=== PATIENT | female | born 1940 | race Caucasian/White ===

== ENCOUNTER 2016-04-16 14:51 | Emergency (ER) | payer MEDICAID, OTHER ==
[~2016-04-16] VITALS: Ht 152.4 cm; Wt 74.0 kg
[~2016-04-16 14:51] MED LIST: BUSP10 PO; METO25 PO; PROZ40CA PO; VALI5TAB PO
[2016-04-16 14:56] VITALS: BP 137/90; PULSE 97; RESP 18; TEMP 98.1; O2SAT 95
[2016-04-16] MEDS ORDERED: ACETAMINOPHEN/HYDROcodone 325 MG/5 MG TAB PO ONE (15:15)
[2016-04-16] MEDS ORDERED: NABU1TAB33 PO (15:15)
--- NOTE | 2016-04-16 15:17 | PD ---
HPI . Left knee pain Chief Complaint: Musculoskeletal Complaint Time Seen by Provider: 15:02 Travel History International Travel<30 days: No Contact w/Intl Traveler<30days: No Traveled to known affect area: No History of Present Illness HPI Patient presents for evaluation of a knee injury which occurred in January. She states that she inadvertently fell from a moving van and struck her left knee on the trailer hitch. She states she's been seen at urgent care for same but they "couldn't do anything." She states that she has been taking ibuprofen , 400 mg twice a day with no relief of her symptoms. She states that her symptoms are getting progressively worse. PFSH Past Medical History Arthritis: Yes Blood Disorders: No Anxiety: Yes Depression: Yes Heart Rhythm Problems: No Cancer: Yes (NHL) Cardiac Catheterization: Yes Cardiovascular Problems: Yes High Cholesterol: Yes Chemotherapy: Yes (LAST YR MAY 2014) Chest Pain: Yes Congestive Heart Failure: No COPD: Yes Cerebrovascular Accident: Yes (RIGHT SIDE/LEG DEFICITS) Diabetes: Yes Diminished Hearing: No Endocrine: No Fibromyalgia: Yes Gastrointestinal Disorders: Yes (GERD) GERD: Yes Gout: Yes (PT STATES SHE DOES NOT HAVE) Genitourinary: No Headaches: Yes (Last 3 months ) Hiatal Hernia: Yes Hypertension: Yes Immune Disorder: No Implanted Vascular Access Dvce: No (port REMOVED) Musculoskeletal: Yes Neurologic: Yes (HX 3 TIA'S) Parkinson's Disease: No Psychiatric: Yes (DEPRESSION) Reproductive: No Respiratory: Yes (COPD, LUNG CANCER) Immunizations Current: Yes Radiation Therapy: No Seizures: No Sleep Apnea: Yes Thyroid Disease: No Menopausal: Yes Past Surgical History Abdominal Surgery: Yes (1995--COLON RESECTION,TEMPORARY COLOSTOMY, abd hernia repair) Appendectomy: Yes (1995) Body Medical Devices: R SIDE INFUSAPORT REMOVED Cholecystectomy: Yes (1996) Coronary Artery Bypass Graft: No Gynecologic Surgery: Yes (HYSTERECTOMY) Hysterectomy: Yes Joint Replacement: Yes Thoracic Surgery: Yes (LUNG CA WITH "TUMOR REMOVAL") Tonsillectomy: Yes (1946) Other Surgery: Yes (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/ spine tumor) Social History Alcohol Use: No Tobacco Use: No (QUIT 30+) Substance Use: No Allergies-Medications (Allergen,Severity, Reaction): Coded Allergies: Canned Fish (Unverified Allergy, Severe, 04/16/16) Dairy (Verified Allergy, Severe, TONGUE SWELLING, 04/16/16) Dilaudid (Verified Allergy, Severe, Nausea/Vomiting, 04/16/16) HAPPENED 02/20/14 Egg Allergy (Verified Allergy, Severe, TONGUE SWELLING, 04/16/16) Iodinated Contrast Media (Verified Allergy, Severe, THROAT SWELLING AND SOB, 04/16/16) Oily Fish (Unverified Allergy, Severe, 04/16/16) Penicillin (Verified Allergy, Severe, TONGUE SWELLING, 04/16/16) [place] Fish (Unverified Allergy, Severe, Anaphylaxis, 04/16/16) Shellfish (Verified Allergy, Severe, TONGUE SWELLING, 04/16/16) White Fish (Unverified Allergy, Severe, 04/16/16) Reported Meds & Prescriptions Reported Meds & Active Scripts Active Reported Metoprolol Tartrate 25 Mg Tab 25 Mg PO DAILY Prozac (Fluoxetine HCl) 40 Mg Cap 40 Mg PO BID Novolog Inj (Insulin Aspart) 1,000 Unit/10 Ml Vial 0 SQ DIRECTED Sliding Scale as directed. Review of Systems Except as stated in HPI: all other systems reviewed are Neg General / Constitutional: No: Fever, Chills Musculoskeletal: Positive: Myalgias, Arthralgias, Limited ROM Physical Exam Narrative GENERAL: Healthy-appearing woman SKIN: Warm and dry. No bruising or abrasions noted HEAD: Atraumatic. Normocephalic. EYES: Pupils equal and round. ENT: No nasal bleeding or discharge. Mucous membranes pink and moist. NECK: Trachea midline. CARDIOVASCULAR: Regular rate and rhythm. RESPIRATORY: No accessory muscle use. GASTROINTESTINAL: Abdomen soft, non-tender, nondistended. MUSCULOSKELETAL: No obvious deformities. No edema. Tender especially in the medial aspect of the left knee. There may be a little bit of an effusion. The knee is stable. She is distally neurovascularly intact. NEUROLOGICAL: Awake and alert. No obvious cranial nerve deficits. Motor grossly within normal limits. Normal speech. PSYCHIATRIC: Appropriate mood and affect; insight and judgment normal. Data Data Last Documented VS Vital Signs Date Time Temp Pulse Resp B/P Pulse Ox O2 Delivery O2 Flow Rate FiO2 04/16/16 14:56 98.1 97 18 137/90 95 Orders Knee, Complete (4vws) (04/16/16 15:09) Acetamin-Hydrocod 325-5 Mg ([place] 5-325 (04/16/16 15:15) [facility] Medical Decision Making Medical Screen Exam Complete: Yes Emergency Medical Condition: Yes Differential Diagnosis Differential diagnosis of extremity trauma includes but is not limited to fracture, sprain or strain, dislocation, contusion Narrative Course Patient presents 3 months following an accident for evaluation of left knee pain. X-ray has been ordered. Diagnosis Primary Impression: Left knee pain Qualified Code: M25.562 - Chronic pain of left knee Patient Instructions: General Instructions, Narcotic given in the ED, RICE Therapy (ED) Med/Other Pt SpecificInfo: Prescription(s) given Disposition: 01 DISCHARGE HOME Condition: Stable Jennifer Paiz MD Apr 16, 2016 15:17 Jennifer Paiz MD Apr 16, 2016 15:17
[2016-04-16] MEDS ORDERED: PROZ40CA PO (15:20)
[2016-04-16] MEDS ORDERED: METO25TA3 PO (15:20)
[2016-04-16] MEDS ORDERED: NOVOLOGP2 SQ (15:20)
--- NOTE | 2016-04-16 16:01 | RADHPO ---
EXAM DATE/TIME: 04/16/2016 15:42 [place] COMPARISON: No previous studies available for comparison. INDICATIONS : Patient states she fell out of a vehicle, medial side pain. MEDICAL HISTORY : Stroke. SURGICAL HISTORY : None. ENCOUNTER: Initial ACUITY: 3 months PAIN SCORE: 10/10 LOCATION: Left Knee FINDINGS: There is a moderate-sized suprapatellar knee joint effusion. Moderate to severe osteoarthritis is not ed involving the patellofemoral and femorotibial joints. There is no acute fracture or dislocation of the left knee. CONCLUSION: 1. Moderate-sized suprapatellar knee joint effusion. 2. Moderate to severe osteoarthritis involving the patellofemoral and femorotibial joints. 3. No acute fracture or dislocation. Tj Acevedo MD on April 16, 2016 at 15:59 Board Certified Radiologist. This report was verified electronically.
--- NOTE | 2016-04-16 16:30 | PD ---
Physical Exam Date Seen by Provider: Apr 16, 2016 Time Seen by Provider: 16:29 Narrative Patient has been having pain in her left knee for several months. She did injure it in January area x-ray was ordered and I was asked to follow up on the results. The x-ray is read as showing moderate sized joint effusion, moderate to severe osteoarthritis involving the patellofemoral femorotibial joints. No acute fracture or dislocation. Patient will be released with prescriptions. She is to follow-up with her own medical doctor. She has a history of lymphoma Data Data Last Documented VS Vital Signs Date Time Temp Pulse Resp B/P Pulse Ox O2 Delivery O2 Flow Rate FiO2 04/16/16 14:56 98.1 97 18 137/90 95 Orders Knee, Complete (4vws) (04/16/16 15:09) Acetamin-Hydrocod 325-5 Mg ([place] 5-325 (04/16/16 15:15) MDM Medical Record Reviewed: No Supervised Visit with DEJAH: No Differential Diagnosis Differential includes fracture, contusion, arthritis Narrative Course X-ray shows severe osteoarthritis Diagnosis Primary Impression: Left knee pain Qualified Code: M25.562 - Chronic pain of left knee Additional Impression: Osteoarthritis of left knee Qualified Code: M17.12 - Osteoarthritis of left knee, unspecified osteoarthritis type Patient Instructions: General Instructions, Narcotic given in the ED, RICE Therapy (ED) Disposition: 01 DISCHARGE HOME Condition: Stable Denzel Dunham MD Apr 16, 2016 16:30
[2016-04-16 16:49] VITALS: BP 135/86
== END 2016-04-16 16:50 | disposition home or self-care (01) ==
LOC: PHED 14:51
DX: M25.562 Pain in left knee (principal); E78.00 Pure hypercholesterolemia, unspecified; E11.9 Type 2 diabetes mellitus without complications; I10 Essential (primary) hypertension; I69.398 Other sequelae of cerebral infarction; Z79.4 Long term (current) use of insulin; Z87.828 Personal history of other (healed) physical injury and trauma
CPT/HCPCS: 73564; 99283

== ENCOUNTER 2016-05-02 16:28 | Emergency (ER) | payer OTHER ==
[~2016-05-02] VITALS: Ht 152.4 cm; Wt 70.0 kg
[~2016-05-02 16:28] MED LIST changes: -BUSP10 PO; -METO25 PO; +METO25TA3 PO; +NOVOLOGP2 SQ; -VALI5TAB PO
[2016-05-02 16:35] VITALS: BP 129/60; PULSE 77; RESP 18; TEMP 98.6; O2SAT 99
[2016-05-02] MEDS ORDERED: BUSP10TA PO (16:43)
[2016-05-02] MEDS ORDERED: traMADol HCL 50 MG TAB PO ONE (17:15)
[2016-05-02] MEDS ORDERED: TRAM50TA PO (17:20)
--- NOTE | 2016-05-02 17:20 | PD ---
HPI Chief Complaint: Fall Time Seen by Provider: 16:36 Travel History International Travel<30 days: No Contact w/Intl Traveler<30days: No Traveled to known affect area: No History of Present Illness HPI Patient is a 75-year-old female who presents to emergency room with complaints of acute on chronic left knee pain. Patient reports that in January, she fell out of her truck and landed her left knee. Patient reports that since then, she has had increased pain to her left knee. Patient was seen at an urgent care and did have x-rays of her left knee performed which showed no acute fractures. Patient reports that she is still continuing to have increased pain and swelling to her knee and requests a prescription for pain medication. Patient reports that she does have follow-up with Dr. Parth Wadsworth with Ortho on May 09 for her knee pain, reports that she needs something for pain until she sees him. Denies any new trauma or injury to knee. Denies fever/ chills. Denies any other complaints. PFSH Past Medical History Arthritis: Yes Blood Disorders: No Anxiety: Yes Depression: Yes Heart Rhythm Problems: No Cancer: Yes (NHL) Cardiac Catheterization: Yes Cardiovascular Problems: Yes High Cholesterol: Yes Chemotherapy: Yes (LAST YR MAY 2014) Chest Pain: Yes Congestive Heart Failure: No COPD: Yes Cerebrovascular Accident: Yes (RIGHT SIDE/LEG DEFICITS) Diabetes: Yes Patient Takes Glucophage: No Diminished Hearing: No Endocrine: No Fibromyalgia: Yes Gastrointestinal Disorders: Yes (GERD) GERD: Yes Gout: Yes (PT STATES SHE DOES NOT HAVE) Genitourinary: No Headaches: Yes (Last 3 months ) Hiatal Hernia: Yes Heparin Induced Thrombocytopen: No Hypertension: Yes Immune Disorder: No Musculoskeletal: Yes Neurologic: Yes (HX 3 TIA'S) Parkinson's Disease: No Psychiatric: Yes (DEPRESSION) Reproductive: No Respiratory: Yes (COPD, LUNG CANCER) Immunizations Current: Yes Radiation Therapy: No Seizures: No Sleep Apnea: Yes Thyroid Disease: No ?: Not Menopausal: Yes Past Surgical History Abdominal Surgery: Yes (1995--COLON RESECTION,TEMPORARY COLOSTOMY, abd hernia repair) Appendectomy: Yes (1995) Body Medical Devices: R SIDE INFUSAPORT REMOVED Cholecystectomy: Yes (1996) Coronary Artery Bypass Graft: No Gynecologic Surgery: Yes (HYSTERECTOMY) Hysterectomy: Yes Joint Replacement: Yes Thoracic Surgery: Yes (LUNG CA WITH "TUMOR REMOVAL") Tonsillectomy: Yes (1946) Other Surgery: Yes (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/ spine tumor, left shoulder tumor removal) Family History Family Myocardial Infarction: Yes Social History Alcohol Use: No Tobacco Use: No (QUIT 30+) Substance Use: No Allergies-Medications (Allergen,Severity, Reaction): Coded Allergies: Canned Fish (Unverified Allergy, Severe, 04/16/16) Dairy (Verified Allergy, Severe, TONGUE SWELLING, 04/16/16) Dilaudid (Verified Allergy, Severe, Nausea/Vomiting, 04/16/16) HAPPENED 02/20/14 Egg Allergy (Verified Allergy, Severe, TONGUE SWELLING, 04/16/16) Iodinated Contrast Media (Verified Allergy, Severe, THROAT SWELLING AND SOB, 04/16/16) Oily Fish (Unverified Allergy, Severe, 04/16/16) Penicillin (Verified Allergy, Severe, TONGUE SWELLING, 04/16/16) [place] Fish (Unverified Allergy, Severe, Anaphylaxis, 04/16/16) Shellfish (Verified Allergy, Severe, TONGUE SWELLING, 04/16/16) White Fish (Unverified Allergy, Severe, 04/16/16) Reported Meds & Prescriptions Reported Meds & Active Scripts Active Tramadol (Tramadol HCl) 50 Mg Tab 50 Mg PO Q6H PRN Reported Buspirone (Buspirone HCl) 10 Mg Tab 10 Mg PO BID Metoprolol Tartrate 25 Mg Tab 25 Mg PO DAILY Prozac (Fluoxetine HCl) 40 Mg Cap 40 Mg PO BID Novolog Inj (Insulin Aspart) 1,000 Unit/10 Ml Vial 0 SQ DIRECTED Sliding Scale as directed. Review of Systems General / Constitutional: No: Fever Eyes: No: Visual changes HENT: No: Headaches Cardiovascular: No: Chest Pain or Discomfort Respiratory: No: Shortness of Breath Gastrointestinal: No: Abdominal Pain Genitourinary: No: Dysuria Musculoskeletal: Positive: Limited ROM (left knee), Edema (left knee), Pain ( left knee) Skin: No Rash Neurologic: No: Weakness Psychiatric: No: Depression Endocrine: No: Polydipsia Hematologic/Lymphatic: No: Easy Bruising Physical Exam Narrative GENERAL: NAD, Nontoxic SKIN: Warm and dry. HEAD: Atraumatic. Normocephalic. EYES: Pupils equal and round. No scleral icterus. No injection or drainage. ENT: No nasal bleeding or discharge. Mucous membranes pink and moist. NECK: Trachea midline. No JVD. CARDIOVASCULAR: Regular rate and rhythm. No murmur appreciated. RESPIRATORY: No accessory muscle use. Clear to auscultation. Breath sounds equal bilaterally. GASTROINTESTINAL: Abdomen soft, non-tender, nondistended. Hepatic and splenic margins not palpable. MUSCULOSKELETAL: No obvious deformities. No clubbing. RLE: normal exam LLE: Patient with no obvious deformities or open fractures, patient with good range of motion to left hip, patient with pain with range of motion to left knee , patient with mild swelling /effusion to left knee NEUROLOGICAL: Awake and alert. No obvious cranial nerve deficits. Motor grossly within normal limits. Normal speech. PSYCHIATRIC: Appropriate mood and affect; insight and judgment normal. Data Data Last Documented VS Vital Signs Date Time Temp Pulse Resp B/P Pulse Ox O2 Delivery O2 Flow Rate FiO2 05/02/16 16:43 77 18 99 Room Air 05/02/16 16:35 98.6 129/60 Orders Tramadol (Ultram) (05/02/16 17:15) [facility] Medical Decision Making Medical Screen Exam Complete: Yes Emergency Medical Condition: Yes Interpretation(s) Vital Signs Date Time Temp Pulse Resp B/P Pulse Ox O2 Delivery O2 Flow Rate FiO2 05/02/16 16:43 77 18 99 Room Air 05/02/16 16:35 98.6 77 18 129/60 99 Differential Diagnosis Knee effusion, knee sprain, knee fracture, acute on chronic pain, osteoarthritis of knee Narrative Course Patient is a 75-year-old female with complaints of acute on chronic left knee pain after injury to her knee in January. Patient denies any new traumas or falls, reports that she does have an appointment with her orthopedist Dr. Parth Wadsworth on May 09. Patient does not want any interventions at this time except for a prescription for pain medications. Patient currently refusing x-ray of the knee or any other interventions. Patient requests only medications for pain and to be discharged home so she can follow with Dr. Wadsworth in the office. Patient with acute on chronic knee pain. Patient does have a mild joint effusion. There are no signs and symptoms for septic knee. Signs and symptoms of when to return to the emergency reviewed patient in detail. Diagnosis Primary Impression: Left knee pain Qualified Code: M25.562 - Chronic pain of left knee Patient Instructions: General Instructions Additional Instructions: Please return to ER as needed Please follow-up with orthopedic surgeon as scheduled Med/Other Pt SpecificInfo: Prescription(s) given Scripts Tramadol 50 Mg Tab50 Mg PO Q6H PRN (PAIN) #10 TAB Ref 0 Prov:Rhiannon Bazan DO 05/02/16 Disposition: 01 DISCHARGE HOME Condition: Stable Rhiannon Bazan DO May 02, 2016 17:20
== END 2016-05-02 18:49 | disposition home or self-care (01) ==
LOC: NEPC 16:28
DX: M25.562 Pain in left knee (principal); G89.29 Other chronic pain
CPT/HCPCS: 99283

== ENCOUNTER 2016-10-13 14:30 | Emergency (ER) | payer OTHER ==
[~2016-10-13] VITALS: Ht 121.9 cm; Wt 76.0 kg
[~2016-10-13 14:30] MED LIST changes: +BUSP10TA PO; +TRAM50TA PO
[2016-10-13 14:36] VITALS: BP 155/96; PULSE 122; RESP 16; TEMP 98.1; O2SAT 97
--- NOTE | 2016-10-13 16:50 | PD ---
HPI Chief Complaint: Abdominal Pain Time Seen by Provider: 15:53 Travel History International Travel<30 days: No Contact w/Intl Traveler<30days: No Traveled to known affect area: No History of Present Illness HPI This 75-year-old female is complaining of abdominal distention and chest pain. She has a long history of non-Hodgkin's lymphoma. She was recently diagnosed with breast cancer. She had bilateral mastectomy and just finished a course of radiation treatment at the beginning of September. She's been having pain in the chest since the radiation. The pain is aggravated by palpation and certain movements. She has had some nausea. She went to [facility] last week and had a CAT scan told that her insides were inflamed. She was given prescriptions for pain medication and also for nausea medicine she hasn't used either one. She says she doesn't like to use pain medicine feels like her belly has gotten bigger. She has not had fever or chills. PFSH Past Medical History Arthritis: Yes Blood Disorders: No Anxiety: Yes Depression: Yes Heart Rhythm Problems: No Cancer: Yes (NHL, BREAST) Cardiac Catheterization: Yes Cardiovascular Problems: Yes High Cholesterol: Yes Chemotherapy: Yes (LAST YR MAY 2014) Chest Pain: Yes Congestive Heart Failure: No COPD: Yes Cerebrovascular Accident: Yes (RIGHT SIDE/LEG DEFICITS) Diabetes: Yes Patient Takes Glucophage: No Diminished Hearing: No Endocrine: No Fibromyalgia: Yes Gastrointestinal Disorders: Yes (GERD) GERD: Yes Gout: Yes (PT STATES SHE DOES NOT HAVE) Genitourinary: No Headaches: Yes (Last 3 months ) Hiatal Hernia: Yes Heparin Induced Thrombocytopen: No Hypertension: Yes Immune Disorder: No Musculoskeletal: Yes Neurologic: Yes (HX 3 TIA'S) Parkinson's Disease: No Psychiatric: Yes (DEPRESSION) Reproductive: No Respiratory: Yes (COPD, LUNG CANCER) Immunizations Current: Yes Radiation Therapy: No Seizures: No Sleep Apnea: Yes Thyroid Disease: No Menopausal: Yes Past Surgical History Abdominal Surgery: Yes (1995--COLON RESECTION,TEMPORARY COLOSTOMY, abd hernia repair) Appendectomy: Yes (1995) Body Medical Devices: R SIDE INFUSAPORT REMOVED Cholecystectomy: Yes (1996) Coronary Artery Bypass Graft: No Gynecologic Surgery: Yes (HYSTERECTOMY) Hysterectomy: Yes Joint Replacement: Yes Thoracic Surgery: Yes (LUNG CA WITH "TUMOR REMOVAL") Tonsillectomy: Yes (1946) Other Surgery: Yes (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/ spine tumor, left shoulder tumor removal) Family History Family Myocardial Infarction: Yes Social History Alcohol Use: No Tobacco Use: No (QUIT 30+) Substance Use: No Allergies-Medications (Allergen,Severity, Reaction): Coded Allergies: Canned Fish (Unverified Allergy, Severe, 10/13/16) Dairy (Verified Allergy, Severe, TONGUE SWELLING, 10/13/16) Dilaudid (Verified Allergy, Severe, Nausea/Vomiting, 10/13/16) HAPPENED 02/20/14 Egg Allergy (Verified Allergy, Severe, TONGUE SWELLING, 10/13/16) Iodinated Contrast Media (Verified Allergy, Severe, THROAT SWELLING AND SOB, 10/13/16) Oily Fish (Unverified Allergy, Severe, 10/13/16) Penicillin (Verified Allergy, Severe, TONGUE SWELLING, 10/13/16) [place] Fish (Unverified Allergy, Severe, Anaphylaxis, 10/13/16) Shellfish (Verified Allergy, Severe, TONGUE SWELLING, 10/13/16) White Fish (Unverified Allergy, Severe, 10/13/16) Cipro (Verified Allergy, Intermediate, HIVES, 10/13/16) Reported Meds & Prescriptions Reported Meds & Active Scripts Active Tramadol (Tramadol HCl) 50 Mg Tab 50 Mg PO Q6H PRN Reported Buspirone (Buspirone HCl) 10 Mg Tab 10 Mg PO BID Metoprolol Tartrate 25 Mg Tab 25 Mg PO DAILY Prozac (Fluoxetine HCl) 40 Mg Cap 40 Mg PO BID Novolog Inj (Insulin Aspart) 1,000 Unit/10 Ml Vial 0 SQ DIRECTED Sliding Scale as directed. Review of Systems General / Constitutional: No: Fever, Chills Eyes: No: Diploplia HENT: No: Headaches Cardiovascular: Positive: Chest Pain or Discomfort Gastrointestinal: Positive: Nausea, Other (distention) Genitourinary: No: Urgency Musculoskeletal: No: Myalgias Physical Exam Narrative GENERAL: Well-developed female SKIN: Focused skin assessment warm/dry. HEAD: Atraumatic. Normocephalic. EYES: Pupils equal and round. No scleral icterus. No injection or drainage. ENT: No nasal bleeding or discharge. Mucous membranes pink and moist. NECK: Trachea midline. No JVD. CARDIOVASCULAR: Regular rate and rhythm. No murmur appreciated. RESPIRATORY: No accessory muscle use. Clear to auscultation. Breath sounds equal bilaterally. Scars from her mastectomy are healing well. GASTROINTESTINAL: Abdomen soft, non-tender, mild distention. It is not tympanitic hepatic and splenic margins not palpable. Scars MUSCULOSKELETAL: No obvious deformities. No clubbing. No cyanosis. No edema. NEUROLOGICAL: Awake and alert. No obvious cranial nerve deficits. Motor grossly within normal limits. Normal speech. PSYCHIATRIC: Appropriate mood and affect; insight and judgment normal. Data Data Last Documented VS Vital Signs Date Time Temp Pulse Resp B/P Pulse Ox O2 Delivery O2 Flow Rate FiO2 10/13/16 14:36 98.1 122 16 155/96 97 MDM Medical Decision Making Medical Screen Exam Complete: Yes Emergency Medical Condition: Yes Medical Record Reviewed: Yes Differential Diagnosis Differential includes adverse effect of radiation treatment, metastatic breast cancer, non-Hodgkin's Narrative Course I offered to do a full workup and repeat CT scan. Patient declines at this time and says she'll go home and try her medications. She is stable for discharge Diagnosis Primary Impression: Adverse effect of radiation therapy Disposition: 01 DISCHARGE HOME Condition: Stable Denzel Dunham MD Oct 13, 2016 16:50
== END 2016-10-13 17:15 | disposition home or self-care (01) ==
LOC: PHED 14:30
DX: T66.XXXA Radiation sickness, unspecified, initial encounter (principal); C50.919 Malignant neoplasm of unspecified site of unspecified female breast; Z85.72 Personal history of non-Hodgkin lymphomas
CPT/HCPCS: 99282

== ENCOUNTER 2017-03-25 15:54 | Emergency (ER) | payer OTHER ==
[2017-03-25 15:58] VITALS: BP 151/77; RESP 20; TEMP 98.1; O2SAT 96
[2017-03-25 16:35] LABS: GLUCOSE,URINE NEG (NEG); KETONE, URINE TRACE mg/dL (NEG); NITRITE,URINE NEG (NEG); PH, URINE 5.5 (5.0-8.5); URINE LEUKOCYTE ESTERASE TRACE (NEG)
--- NOTE | 2017-03-25 16:45 | PD ---
HPI Chief Complaint: Abdominal Pain Time Seen by Provider: 16:24 Travel History International Travel<30 days: No Contact w/Intl Traveler<30days: No Traveled to known affect area: No History of Present Illness HPI The patient was seen and examined in the presence of the nurse. This patient complains of diffuse pain everywhere. Skin is very hypersensitive. She has history of fibromyalgia. Symptoms severity is moderate. Duration is 3-4 weeks PFSH Past Medical History Arthritis: Yes Blood Disorders: No Anxiety: Yes Depression: Yes Heart Rhythm Problems: No Cancer: Yes (NHL, BREAST) Cardiac Catheterization: Yes Cardiovascular Problems: Yes High Cholesterol: Yes Chemotherapy: Yes (LAST YR MAY 2014) Chest Pain: Yes Congestive Heart Failure: No COPD: Yes Cerebrovascular Accident: Yes (RIGHT SIDE/LEG DEFICITS) Diabetes: Yes Diminished Hearing: No Endocrine: No Fibromyalgia: Yes Gastrointestinal Disorders: Yes (GERD) GERD: Yes Gout: Yes (PT STATES SHE DOES NOT HAVE) Genitourinary: No Headaches: Yes (Last 3 months ) Hiatal Hernia: Yes Heparin Induced Thrombocytopen: No Hypertension: Yes Immune Disorder: No Musculoskeletal: Yes Neurologic: Yes (HX 3 TIA'S) Parkinson's Disease: No Psychiatric: Yes (DEPRESSION) Reproductive: No Respiratory: Yes (COPD, LUNG CANCER) Immunizations Current: Yes Radiation Therapy: No Seizures: No Sleep Apnea: Yes Thyroid Disease: No Menopausal: Yes Past Surgical History Abdominal Surgery: Yes (1995--COLON RESECTION,TEMPORARY COLOSTOMY, abd hernia repair) Appendectomy: Yes (1995) Body Medical Devices: R SIDE INFUSAPORT REMOVED Cholecystectomy: Yes (1996) Coronary Artery Bypass Graft: No Gynecologic Surgery: Yes (HYSTERECTOMY) Hysterectomy: Yes Joint Replacement: Yes Thoracic Surgery: Yes (LUNG CA WITH "TUMOR REMOVAL") Tonsillectomy: Yes (1946) Other Surgery: Yes (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/ spine tumor, left shoulder tumor removal) Social History Alcohol Use: No Tobacco Use: No (QUIT 30+) Substance Use: No Allergies-Medications (Allergen,Severity, Reaction): Coded Allergies: Fish Containing Products (Unverified Allergy, Severe, 11/17/16) Iodinated Contrast- Oral and IV Dye (Unverified Allergy, Severe, THROAT SWELLING AND SOB, 11/17/16) egg (Unverified Allergy, Severe, TONGUE SWELLING, 11/17/16) fish derived (Unverified Allergy, Severe, Anaphylaxis, 11/17/16) fish oil (Unverified Allergy, Severe, 11/17/16) hydromorphone (Unverified Allergy, Severe, Nausea/Vomiting, 11/17/16) HAPPENED 02/20/14 lactose (Unverified Allergy, Severe, TONGUE SWELLING, 11/17/16) penicillin G (Unverified Allergy, Severe, TONGUE SWELLING, 11/17/16) shellfish derived (Unverified Allergy, Severe, TONGUE SWELLING, 11/17/16) ciprofloxacin (Unverified Allergy, Intermediate, HIVES, 11/17/16) Reported Meds & Prescriptions Reported Meds & Active Scripts Active Tramadol (Tramadol HCl) 50 Mg Tab 50 Mg PO Q6H PRN Reported Buspirone (Buspirone HCl) 10 Mg Tab 10 Mg PO BID Metoprolol Tartrate 25 Mg Tab 25 Mg PO DAILY Prozac (Fluoxetine HCl) 40 Mg Cap 40 Mg PO BID Novolog Inj (Insulin Aspart) 1,000 Unit/10 Ml Vial 0 SQ DIRECTED Sliding Scale as directed. Review of Systems General / Constitutional: No: Fever HENT: No: Headaches Cardiovascular: No: Chest Pain or Discomfort Physical Exam Narrative RESPIRATORY: Respiratory effort unlabored, no retractions or use of accessory muscles. Breath sounds are clear and symmetric. CARDIOVASCULAR: Regular rate and rhythm without murmur. Extremities showed no edema or varicosities. SKIN: Focused skin assessment reveals no rash or ulcers. Skin is warm and dry. Palpation shows no induration or nodules. Data Data Last Documented VS Vital Signs Date Time Temp Pulse Resp B/P (MAP) Pulse Ox O2 Delivery O2 Flow Rate FiO2 03/25/17 15:58 98.1 20 151/77 (101) 96 Orders Orders Complete Blood Count With Diff (03/25/17 16:19) Comprehensive Metabolic Panel (03/25/17 16:19) Urinalysis - C+S If Indicated (03/25/17 16:19) Lipase (03/25/17 16:19) Labs Laboratory Tests Test 03/25/17 16:25 [facility] Medical Decision Making Medical Screen Exam Complete: Yes Emergency Medical Condition: Yes Medical Record Reviewed: Yes Differential Diagnosis Fibromyalgia, neuropathy, chronic pain Narrative Course I have reviewed the patient's electronic medical record. I reviewed her most recent oncology note Patient has a lot of chronic diffuse pain complaints. He is on gabapentin and had a recent dosage increase. She's been on tramadol in the past and tolerated it well so I written her some of those. Diagnosis Primary Impression: Diffuse pain Additional Impression: Neuropathic pain Additional Instructions: The patient was advised to follow up with their physician and return if they worsen. The patient was warned about potential sedation for the medications they will receive on prescription. Med/Other Pt SpecificInfo: Prescription(s) given Disposition: 01 DISCHARGE HOME Condition: Stable Garth Mcmanus MD Mar 25, 2017 16:45
[2017-03-25] MEDS ORDERED: TRAM50TA PO (16:46)
[2017-03-25 16:48] LABS: BILIRUBIN, URINE NEG (NEG); BLOOD, URINE TRACE (NEG)
[2017-03-25 16:49] LABS: MUCUS URINE MANY /lpf (OCC); URINE COLOR YELLOW (YELLW/STRAW)
[2017-03-25] MEDS ORDERED: LISI10TA3 PO (16:50)
[2017-03-25] MEDS ORDERED: GABA100C4 PO (16:50)
[2017-03-25 16:51] LABS: RBC, URINE 0-3 /hpf (0-3)
[2017-03-25 16:52] LABS: SQUAMOUS EPITHELIAL CELL URINE 0-5 /hpf (0-5)
== END 2017-03-25 17:00 | disposition home or self-care (01) ==
LOC: PHED 15:54
DX: M79.2 Neuralgia and neuritis, unspecified (principal); G89.29 Other chronic pain; M79.7 Fibromyalgia; F32.9 Major depressive disorder, single episode, unspecified; E78.00 Pure hypercholesterolemia, unspecified; J44.9 Chronic obstructive pulmonary disease, unspecified; I10 Essential (primary) hypertension; K21.9 Gastro-esophageal reflux disease without esophagitis; E11.9 Type 2 diabetes mellitus without complications; Z85.118 Personal history of other malignant neoplasm of bronchus and lung; Z86.73 Personal history of transient ischemic attack (TIA), and cerebral infarction without residual deficits; Z79.4 Long term (current) use of insulin; Z87.891 Personal history of nicotine dependence
CPT/HCPCS: 81001; 99283

== ENCOUNTER 2017-04-10 10:18 | Emergency (ER) | payer OTHER ==
[~2017-04-10 10:18] MED LIST changes: +GABA100C4 PO; +LISI10TA3 PO
[2017-04-10 10:31] VITALS: BP 133/104; PULSE 96; RESP 18; TEMP 98.3; O2SAT 97
[2017-04-10] MEDS ORDERED: PROM12.54 PO (10:54)
[2017-04-10] MEDS ORDERED: NITR1SUB2 SL (10:54)
[2017-04-10] MEDS ORDERED: HYDR-3366 PO (10:54)
[2017-04-10] MEDS ORDERED: DIAZ5TAB PO (10:54)
[2017-04-10] MEDS ORDERED: TRAM50 PO (11:00)
--- NOTE | 2017-04-10 11:00 | PD ---
HPI Chief Complaint: Back/ Neck Pain or Injury Time Seen by Provider: 10:54 Travel History International Travel<30 days: No Contact w/Intl Traveler<30days: No Traveled to known affect area: No History of Present Illness HPI Patient presents with uncontrolled right mid back pain. States she's been suffering for 3 weeks. Denies any fall misstep. Evaluated on 26 March and given Ultram for control of her pain. Reports a past medical history of lung cancer many years ago and breast cancer with bilateral mastectomy on 417. Complicated history with radiation and burning of her abdomen. States she was discharged by Dr. Stahl and is followed by her primary care provider Dr. Martinez. Requesting more pain medication for pain control. Denies any nausea vomiting diarrhea or fever. Denies any new chest pain shortness of breath urinary or bowel symptoms. PFSH Past Medical History Arthritis: Yes Blood Disorders: No Anxiety: Yes Depression: Yes Heart Rhythm Problems: No Cancer: Yes (NHL, BREAST WITH DOUBLE MASTECTOMY/LYMPH REMOVED) Cardiac Catheterization: Yes Cardiovascular Problems: Yes High Cholesterol: Yes Chemotherapy: Yes Chest Pain: Yes Congestive Heart Failure: No COPD: Yes Cerebrovascular Accident: Yes (RIGHT SIDE/LEG DEFICITS) Diabetes: Yes Patient Takes Glucophage: No Diminished Hearing: No Endocrine: No Fibromyalgia: Yes Gastrointestinal Disorders: Yes (GERD) GERD: Yes Gout: Yes (PT STATES SHE DOES NOT HAVE) Genitourinary: No Headaches: Yes (Last 3 months ) Hiatal Hernia: Yes Heparin Induced Thrombocytopen: No Hypertension: Yes Immune Disorder: No Musculoskeletal: Yes Neurologic: Yes (HX 3 TIA'S) Parkinson's Disease: No Psychiatric: Yes (DEPRESSION) Reproductive: No Respiratory: Yes (COPD, LUNG CANCER) Immunizations Current: Yes Radiation Therapy: No Seizures: No Sleep Apnea: Yes Thyroid Disease: No Influenza Vaccination: No Menopausal: Yes Past Surgical History Abdominal Surgery: Yes (1995--COLON RESECTION,TEMPORARY COLOSTOMY, abd hernia repair) Appendectomy: Yes (1995) Body Medical Devices: R SIDE INFUSAPORT REMOVED Cholecystectomy: Yes (1996) Coronary Artery Bypass Graft: No Gynecologic Surgery: Yes (HYSTERECTOMY) Hysterectomy: Yes Joint Replacement: Yes Thoracic Surgery: Yes (LUNG CA WITH "TUMOR REMOVAL") Tonsillectomy: Yes (1946) Other Surgery: Yes (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/ spine tumor, left shoulder tumor removal) Family History Family Myocardial Infarction: Yes Social History Alcohol Use: No Tobacco Use: No (QUIT 30+) Substance Use: No Allergies-Medications (Allergen,Severity, Reaction): Coded Allergies: Fish Containing Products (Unverified Allergy, Severe, 11/17/16) Iodinated Contrast- Oral and IV Dye (Unverified Allergy, Severe, THROAT SWELLING AND SOB, 11/17/16) egg (Unverified Allergy, Severe, TONGUE SWELLING, 11/17/16) fish derived (Unverified Allergy, Severe, Anaphylaxis, 11/17/16) fish oil (Unverified Allergy, Severe, 11/17/16) hydromorphone (Unverified Allergy, Severe, Nausea/Vomiting, 11/17/16) HAPPENED 02/20/14 lactose (Unverified Allergy, Severe, TONGUE SWELLING, 11/17/16) penicillin G (Unverified Allergy, Severe, TONGUE SWELLING, 11/17/16) shellfish derived (Unverified Allergy, Severe, TONGUE SWELLING, 11/17/16) ciprofloxacin (Unverified Allergy, Intermediate, HIVES, 11/17/16) Reported Meds & Prescriptions Reported Meds & Active Scripts Active Tramadol (Tramadol HCl) 50 Mg Tab 50 Mg PO Q6H PRN Reported Promethazine (Promethazine HCl) 12.5 Mg Tab 25 Mg PO Q6H PRN [place] (Hydrocodone-Acetaminophen) 10-325 Mg Tab 1 Tab PO Q4H PRN Nitroglycerin SL (Nitroglycerin) 0.3 Mg Subl 0.3 Mg SL DIRECTED PRN ONE TABLET UNDER THE TONGUE NEEDED FOR CHEST PAIN, MAY REPEAT EVERY FIVE MINUTES FOR A TOTAL OF 3 DOSES OR CALL 911 IF NO RELIEF Diazepam 5 Mg Tab 5 Mg PO DAILY Lisinopril 10 Mg Tab 10 Mg PO DAILY Gabapentin 100 Mg Cap 300 Mg PO TID Buspirone (Buspirone HCl) 10 Mg Tab 10 Mg PO BID Metoprolol Tartrate 25 Mg Tab 25 Mg PO DAILY Prozac (Fluoxetine HCl) 40 Mg Cap 40 Mg PO BID Novolog Inj (Insulin Aspart) 1,000 Unit/10 Ml Vial 0 SQ DIRECTED Sliding Scale as directed. Review of Systems General / Constitutional: No: Fever Eyes: No: Visual changes HENT: No: Headaches Cardiovascular: No: Chest Pain or Discomfort Respiratory: No: Shortness of Breath Gastrointestinal: No: Abdominal Pain Genitourinary: No: Dysuria Musculoskeletal: Positive: Pain Skin: No Rash Neurologic: No: Weakness Psychiatric: No: Depression Endocrine: No: Polydipsia Hematologic/Lymphatic: No: Easy Bruising Physical Exam Narrative GENERAL: Well-nourished, well-developed patient. SKIN: Focused skin assessment warm/dry. HEAD: Normocephalic. EYES: No scleral icterus. No injection or drainage. NECK: Supple, trachea midline. No JVD or lymphadenopathy. CARDIOVASCULAR: Regular rate and rhythm without murmurs, gallops, or rubs. Bilateral mastectomy noted RESPIRATORY: Breath sounds equal bilaterally. No accessory muscle use. GASTROINTESTINAL: Abdomen soft, non-tender, mildly distended, multiple abdominal scars. MUSCULOSKELETAL: No cyanosis, or edema. BACK: Nontender without obvious deformity. No CVA tenderness. Examination of the spine reveals no midline tenderness there is tenderness in the right paraspinous pain radiating to the mid axillary line which appears to be muscular Data Data Last Documented VS Vital Signs Date Time Temp Pulse Resp B/P (MAP) Pulse Ox O2 Delivery O2 Flow Rate FiO2 04/10/17 10:31 98.3 96 18 133/104 (114) 97 MDM Medical Decision Making Medical Screen Exam Complete: Yes Emergency Medical Condition: Yes Differential Diagnosis Medication refill, malingering, musculoskeletal pain, metastases, costochondritis, pleurisy Narrative Course Assessment and plan discussed with patient. Declined extensive workup. Requesting pain medication refill. Diagnosis Primary Impression: Medication refill Patient Instructions: General Instructions Additional Instructions: Pain medication as prescribed. Encourage nonsteroidal anti-inflammatories warm heat gentle stretching and strengthening and massage. Encouraged to follow-up with PCP for further pain management. Encouraged to recheck to Dr. Stahl again and see if any further workup can be done. Encouraged to return to emergency room with any onset of new symptoms. Med/Other Pt SpecificInfo: Prescription(s) given Scripts Tramadol (Ultram) 50 Mg Tab 50 MG PO Q4H Y for PAIN, #30 TAB 0 Refills Prov: Logan Madrid MD 04/10/17 Disposition: 01 DISCHARGE HOME Condition: Good Logan Madrid MD Apr 10, 2017 11:00
[2017-04-10 11:30] VITALS: BP 159/99
== END 2017-04-10 11:30 | disposition home or self-care (01) ==
LOC: PHED 10:18
DX: Z76.0 Encounter for issue of repeat prescription (principal); M79.7 Fibromyalgia; I10 Essential (primary) hypertension; E78.00 Pure hypercholesterolemia, unspecified; F32.9 Major depressive disorder, single episode, unspecified; E11.9 Type 2 diabetes mellitus without complications; Z85.3 Personal history of malignant neoplasm of breast; Z85.118 Personal history of other malignant neoplasm of bronchus and lung; Z86.73 Personal history of transient ischemic attack (TIA), and cerebral infarction without residual deficits
CPT/HCPCS: 99283